=== PATIENT | female | born 1985 ===

== ENCOUNTER 2025-08-30 23:54 | Emergency (ER) | payer OTHER, SELFPAY ==
--- NOTE | ~2025-08-30 | XR_ITS ---
Examination: XR chest 2V Clinical History: chest pain LEFT SIDE AND MIDDLE OF BACK Comparison: None Technique: PA and Lateral Findings: Cardiomediastinal silhouette normal size and configuration. Lungs clear. No acute bony abnormality. IMPRESSION: 1. No acute cardiopulmonary findings. Reviewed, dictated and finalized at location R. CH AND LANGUAGE CLINICIAN
[2025-08-30 23:59] VITALS: BP 153/101; PULSE 84; RESP 20; TEMP 36.4; O2SAT 100
--- NOTE | 2025-08-31 00:03 | ECG_ITS ---
Test Date: 2025-08-31 00:08:48 Measurements Intervals [place] Rate: 73 P: 48 MA: 126 QRS: 32 QRSD: 74 T: 56 QT: 372 QTc: 410 Interpretive Statements SINUS RHYTHM WITH SINUS ARRHYTHMIA BASELINE ARTIFACT- I, II, AVR, AVL, AVF, V3-V6 NORMAL ECG No previous ECG available for comparison Electronically Signed On 08-31-2025 09:13:48 DESIGN CHIEF by Geovany Briones D.O.
[2025-08-31 00:44] LABS: Hematocrit 41.6 % (37.0-47.0); Hemoglobin 13.9 g/dL (12.0-15.0); Immature Granulocyte Percent A 0.4 % (0-0.5); Lymphocytes Absolute Auto 2.27 K/mm3 (0.9-3.2); Mean Corpuscular HGB Conc 33.4 g/dl (32-36); Mean Corpuscular Hemoglobin 29.2 pg (26-34); Mean Corpuscular Volume 87.4 fl (80-100); Nucleated Red Blood Cells Absolute Auto 0.000 K/mm3 (0.0-0.012); Nucleated Red Blood Cells Perc 0.0 % (0.0-0.2); Platelet Count Result 337 k/mm3 (150-375); Red Blood Count 4.76 M/mm3 (4.2-5.4); White Blood Count 10.3 K/mm3 (4.5-10.0)
[2025-08-31 00:46] LABS: Alanine Aminotransferase 38 U/L (6-35); Albumin Level 4.7 g/dL (3.5-5.1); Alkaline Phosphatase 96 U/L (38-126); Anion Gap 8 mmol/L (4-12); Aspartate Amino Transferase 29 U/L (14-36); Bilirubin,Total 0.4 mg/dL (0.2-1.3); Blood Urea Nitrogen 21 mg/dL (7-17); Calcium 9.6 mg/dL (8.4-10.2); Carbon Dioxide 26 mmol/L (22-30); Chloride 103 mmol/L (98-107); Estimated CRCL calculation 72 ml/min; Estimated Glomerular Filt Rate > 60; Glucose 119 mg/dL (65-110); Lipase 113 U/L (23-300); Potassium 4.3 mmol/L (3.4-5.0); Sodium 137 mmol/L (137-145); Total Protein 8.0 g/dL (6.3-8.2)
[2025-08-31 00:50] LABS: INR 0.9; Partial Thromboplastin Time 30.7 Seconds (22.3-36.8); Prothrombin Time 12.5 Seconds (11.1-14.7)
[2025-08-31 00:57] LABS: Troponin I 0.017 ng/mL (0.000-0.034)
--- OUTSIDE RECORDS SUMMARY | 2025-08-31 07:21 | XMS_ITS | Clinical Summary ---
Author Organization [facility] Address [facility] [place] [address] Care Team Providers Care Outside Machinist Supervisor Name Role Phone Nayeli Parrish MD Primary Care Provider [phone] Allergies Active Allergy Reactions Criticality Noted Date Comments Penicillins Unknown 10/25/2020 Medications cetirizine 10 MG tablet Take 10 mg by mouth daily. Active Family History Medical History Relation Comments Diabetes Father Heart Disease Father Liver Disease Father No Known Problems Mother Relation Status Comments Father Alive Mother Alive Social History Tobacco Use Types Packs/Day Years Used Date Smoking Tobacco: Never Smokeless Tobacco: Never Alcohol Use Standard Drinks/Week Comments Yes 0 (1 standard drink = 0.6 oz pur e alcohol) occas Comments No Sex and Gender Information Value Date Recorded Sex Assigned at Not on file Legal Sex Female 8:00 PM CDT Gender Identity Not on file Sexual Orientation Not on file Last Filed Vital Signs Vital Sign Reading Time Taken Comments Blood Pressure 136/95 10/25/2020 2:17 PM TELECOM SPECIALIST Pulse 100 10/25/2020 2:17 PM TELECOM SPECIALIST Temperature 37.1 C (98.8 F) 10/25/2020 2:17 PM TELECOM SPECIALIST Respiratory Rate 16 10/25/2020 2:17 PM TELECOM SPECIALIST Oxygen Saturation 100% 10/25/2020 2:17 PM TELECOM SPECIALIST Inhaled Oxygen Concentration - - Weight 70.3 kg (155 lb) 10/25/2020 2:17 PM TELECOM SPECIALIST Height 165.1 cm (5' 5) 10/25/2020 2:17 PM TELECOM SPECIALIST Body Mass Index 25.79 10/25/2020 2:17 PM TELECOM SPECIALIST Plan of Treatment Health Maintenance Due Date Last Done Comments Cervical Cancer Screening Pa p Smear (Age 30 to 64) Every 3 Years 1983 Annual Physical 1986 Hepatitis C 2001 DTaP, Tdap and Td Vaccines ( 1 - Tdap) 2002 Hepatitis B Vaccines (1 of 3 - 19+ 3-dose series) 2002 HPV Vaccines (1 - 3-dose SCD M series) 2010 Cervical Cancer Screening Pa p with HPV Testing (Age 30 to 64) Every 5 Years 2013 Cervical Cancer Screening with HPV 2013 Mammogram Screening 2023 COVID-19 Vaccine (1 - 2024-2 6 season) 2025 Influenza Adult (#1) 2025 Hepatitis A Vaccines Aged Out No long er eligible based on patient's age to complete this topic Meningococcal B Vaccine Aged Out No l onger eligible based on patient's age to complete this topic Meningococcal Vaccine Aged Out No angelo parmjit eligible based on patient's age to complete this topic Pneumococcal Vaccine: Pediat rics (0 to 5 Years) and At-Risk Patients (6 to 49 Years) Aged Out No longer eligible b ased on patient's age to complete this topic RSV Immunizations Under 20 Months Aged Out No longer eligible based on patient's age to complete this topic Insurance [facility] Care Teams Outside Machinist Supervisor Relationship Specialty Start Date End Date Nayeli Parrish MD [address] [place] [address] PCP - General INTERNAL MEDICINE 10/25/20
--- OUTSIDE RECORDS SUMMARY | 2025-08-31 07:21 | XMS_ITS | Clinical Summary ---
Author Organization [facility] Address [facility] [place] [address] Care Team Providers Care Study Abroad Advisor Name Role Phone Nayeli Parrish MD Primary Care Provider [phone] Allergies Active Allergy Reactions Criticality Noted Date Comments Levofloxacin Stomach upset,Vomiting Low 09/21/2019 Penicillins Anaphylaxis,Hives High 09/20/2015 Rash Medications cetirizine (ZyrTEC) 10 mg tablet Take 1 tablet (10 mg total) by mouth daily Active multivit with min-folic acid 200 mcg tablet,chewable Take 1 tablet by mouth daily Active albuterol HFA (ProAir HFA) 90 mcg/actuation inhalerIndicati ons:Bronchitis Inhale 2 puffs every 4 (four) hours as needed for wheezing or shortness of breath 1 each 1 3 Active predniSONE (DELTASONE) 10 mg tablet Take 3 tablets daily for 3 days then 2 tablets daily for 3 days, then take 1 tablet daily for 3 days 18 tablet 4 Active Active Problems Problem Noted Date Diagnosed Date Encounter for well woman sea coreas with routine gynecological exam 11/11/2023 Assessment & Plan (11/11/2023 8:12 PM CDT): Pap smear with HPV cotesting completed. Order for mammogram. We will notify the patient of all results. Follow up in one year or sooner if needed. Patient verbalizes understanding regarding plan of care and all questions answered. Other chest pain 11/06/2023 Assessment & Plan (12/09/2023 10:51 AM CDT): Patient came for follow-up. Patient feels much better. She said that her symptoms are resolved. Denied any coughing or chest pain. Chest x-ray was normal. Blood work was unremarkable. She is scheduled for CT of the chest. We made a referral to see stock sheets cleaner inspector but the patient does not think she needs to follow-up with a stock sheets cleaner inspector at this time. Assessment & Plan (11/06/2023 3:55 PM TALENT ACQUISITION SPECIALIST): Patient complains of chest pressure on the left side for about 2 months. Patient denied actual pain. She has no radiation. She has no other complaints otherwise. EKG showed normal sinus rhythm. Will obtain chest x-ray and blood work and make a referral to see a stock sheets cleaner inspector for further evaluation. It is difficult to know exactly what is the cause of this pressure. It does not seem to be cardiac or muscular or GI etc. Shoulder blade pain 01/09/2022 Assessment & Plan (02/26/2022 10:47 AM CDT): Patient finished physical therapy. She feels much better. She said the pain now is about 1/10. She has full range of motion in the right shoulder. Patient does not take any medications. Patient will continue with home therapy. She will call if she has persistent symptoms. Assessment & Plan (01/15/2022 3:40 PM CDT): Patient feels better. She will continue with diclofenac p.r.n.. We will make a referral for physical therapy. Will see her again for follow-up after that. Assessment & Plan (01/09/2022 1:07 PM CDT): Patient with shoulder blade pain. Will obtain x-ray of the right shoulder and thoracic area. She will be started on Voltaren 75 mg b.i.d.. Will evaluate her again in 1 week. Chronic fatigue 11/21/2020 Assessment & Plan (11/21/2020 9:52 AM CDT): Patient has tiredness and fatigue for the last few weeks. Will obtain CBC and SMA 12 and thyroid function test. The symptoms are mild. It could be secondary to allergies. She will call if she has worsened symptoms or if she has other symptoms that come with that. Spider bite 11/21/2020 Assessment & Plan (11/21/2020 9:53 AM CDT): Patient had spider bite on the posterior aspect of the right leg. Symptoms subsided completely. Exam today was unremarkable with no discoloration of the skin or tenderness or swelling or scab. Shortness of breath 09/21/2019 Environmental and seasonal allergies 09/21/2019 Routine general medical exam ination at a health care facility 09/21/2019 BMI 24.0-24.9, adult 09/21/2019 Overview (09/21/2019): Continue to eat healthy balanced diet Immunizations Immunization Administration Dates Next Due Influenza, Unspecified 11/11/2023(Deferred: [place] Refused) Tdap 02/26/2022 Medical History Medical History Date Comments Allergic Family History Medical History Relation Name Comments Diabetes Father Hypertension Father Skin cancer Father vertigo Mother Relation Name Status Comments Father Alive Mother Alive Social History Tobacco Use Types Packs/Day Years Used Date Smoking Tobacco: Never Smokeless Tobacco: Never Tobacco Cessation:Counseling Given: Not Answered Alcohol Use Standard Drinks/Week Comments Yes 0 (1 standard drink = 0.6 oz pur e alcohol) AUDIT-C Answer Date Recorded Q1: How often do you have a drink containing alcohol? Never 12/09/2023 Q2: How many drinks containi ng alcohol do you have on a typical day when you are drinking? Patient does not drink Q3: How often do you have si x or more drinks on one occasion? Never 12/09/2023 PHQ-2 Answer Date Recorded PHQ-2 Total Score (If total score is 3 or more points, staff should administer the PHQ-9) 0 11/06/2023 Personal Safety Answer Date Recorded Getting School Help Needed Not on file 09/03 Comments Unknown Sex and Gender Information Value Date Recorded Sex Assigned at Not on file Legal Sex Female 6:42 PM TALENT ACQUISITION SPECIALIST Gender Identity Not on file Sexual Orientation Not on file Last Filed Vital Signs Vital Sign Reading Time Taken Comments Blood Pressure 120/70 12/09/2023 8:10 AM CDT Pulse 84 12/09/2023 8:10 AM CDT Temperature 36.7 C (98.1 F) 12/09/2023 8:10 AM CDT Respiratory Rate 18 12/09/2023 8:10 AM CDT Oxygen Saturation 98% 12/09/2023 8:10 AM CDT Inhaled Oxygen Concentration - - Weight 73.9 kg (163 lb) 12/09/2023 8:10 AM CDT Height 165.1 cm (5' 5) 12/09/2023 8:10 AM CDT Body Mass Index 27.12 12/09/2023 8:10 AM CDT Plan of Treatment Health Maintenance Due Date Last Done Comments Breast Cancer Screening-Mammogram 1983 Hepatitis C Screening 1983 Varicella Vaccines (1 of 2 - 13+ 2-dose series) 02/08/1996 Hepatitis B Screening 2001 HPV Vaccines (1 - 3-dose SCDM series) 2010 Depression Screening 11/05/2024 11/06/2023, 02/26/2022, 01/09/2022, Additional history exists Cervical Cancer Screening 11/10/20242023, 11/11/2023, 09/30/2019 Regular Well Visit/Exam 18-64 11/10/2024 11/11/2023, 09/28/2019 Covid-19 Vaccine ( - 2024- season) 2025 08/21/2021, 12/12/2020, 11/21/2020 Influenza Vaccine (#1) 2025 DTaP/Tdap/Td Vaccine (2 - Td or Tdap) 02/27/2032 02/26/2022 Pneumococcal vaccine <65 Aged Out No longer eligible based on patient's age to complete this topic Procedures Procedure Name Priority Date/Time Associated Diagnosis Comments HIGH RISK HPV DNA DETECTION WITH GENOTYPING Routine 11/11/2023 3:22 PM CDT Cervical cancer screening from Last 3 Months or Most Recently Relevant to Health Maintenance Results * High Risk HPV DNA Detection with Genotyping (Molecular component) (11/11/2023 3:22 PM CDT) HPV HR 16 Not Detected Not Detected [facility] Comment:Testing performed by : [facility], [address] [place]., [address] HPV HR 18 Not Detected Not Detected [facility] Comment:Testing performed by : [facility], [address] [place]., [address] HPV HR Non 16/18 Not Detected Not Detected [facility]IVERA Comment: Interpretive Data Nucleic acid amplification for detection of high-risk Human Papilloma virus (HPV) is performed by the Farshad Tori 6800 HPV test. This assay specifically detects HPV-16 and HPV-18 genotypes. The following HPV genotypes are detected as high-risk HPV: HPV-31, 33, 35, ,39, 45, 51, 52, 56, 58, 59, 66, and 68. This assay has been approved by the [place] Food and Drug Administration for detection of HPV in cervical specimens collected by a physician using an endocervical brush/spatula or cervical broom and placed in the ThinPrep Pap Test PreservCyt collection containers. The performance characteristics of this test have been verified by the [facility] Molecular Infectious Disease laboratory. Correlate with separately reported cytology results, as applicable. Interpretive data last revised 23 Testing performed by: [facility], [address] [place]., [address] Endocervical 11/11/2023 3:22 PM CDT 11/12/2023 7:42 PM CDT Narrative ASHISH - 11/13/2023 3:27 AM CDT Clinical history and diagnosis->screening Testing type->Screening Last menstrual period (date if known)->10/15/23 us Yakelin Carr NP LAB BODY FLUIDS AND STOOLS ORDERABLES Final Result [facility] RIVERA [address] [facility] Department [place] [address] [facility] from Last 3 Months or Most Recently Relevant to Health Maintenance Insurance SocialKaty ACCESS OOS SocialKaty ACCESS OOS Care Teams Study Abroad Advisor Relationship Specialty Start Date End Date Nayeli Parrish MD [address] [facility] [address] [address] PCP - General Internal Medicine 01/20/23
== END 2025-08-31 07:30 | disposition left against medical advice (07) ==
PROVIDERS: Student in an Organized Health Care Education/Training Program
DX: R07.9 Chest pain, unspecified (principal)
CPT/HCPCS: 36415; 71046; 80053; 83690; 84484; 85025; 85610; 85730; 93005; 99199